=== PATIENT | female | born 1980 | race Caucasian/White ===

== ENCOUNTER 2023-06-06 17:15 | Emergency (ER) | payer SELFPAY ==
[~2023-06-06] VITALS: Ht 152.4 cm; Wt 46.3 kg
[2023-06-06] MEDS ORDERED: MORPHINE SULFATE 4 MG/1 ML DISP.SYRIN IV ONE (17:45)
[2023-06-06 17:57] LABS: HEMATOCRIT 37.8 % (31.2-41.9); MEAN CORPUSCULAR HEMOGLOBIN 31.1 uug (24.7-32.8); PLATELET COUNT (AUTO) 333 K/uL (179-408)
--- NOTE | 2023-06-06 17:58 | NUR ---
1) Received patient AOx4, in moderate distress on arrival. 2) C/o of back, back of head, butt area pain.
[2023-06-06] MEDS ORDERED: SWABABLE VALVE TRANSFER SET EA MC ONE (18:03)
[2023-06-06] MEDS ORDERED: IOHEXOL 300MG/ML 100 ML INFUS..BTL ONE (18:03)
[2023-06-06] MEDS ORDERED: IV NORMAL SALINE 250 ML IV ONE (18:03)
[2023-06-06] MEDS ORDERED: MORPHINE SULFATE 4 MG/1 ML DISP.SYRIN ONE (18:09)
[2023-06-06 18:11] LABS: BILIRUBIN,TOTAL 0.6 mg/dL (0.2-1.0); POTASSIUM 3.9 mmol/L (3.5-5.1); TOTAL PROTEIN, SERUM 6.3 g/dL (6.4-8.2)
[2023-06-06] MEDS ORDERED: ONDANSETRON HCL 4 MG TABLET PO ONE (19:15)
[2023-06-06] MEDS ORDERED: HYDROMORPHONE 1 MG/1 ML DISP.SYRIN IM ONE (19:15)
--- NOTE | 2023-06-06 19:15 | NUR ---
REPORT RECIEVED FROM BOBBY PEREIRA.
--- NOTE | 2023-06-06 19:15 | NUR ---
IV ACCESS: 1) Tried x2 time without success - veins collapse easily. 2) Managed to give Morphine with second attempt. 3) MD informed - no iv access required.
--- NOTE | 2023-06-06 19:20 | NUR ---
Endorsed care to night nurse accordingly
--- NOTE | 2023-06-06 19:30 | NUR ---
PT UP OOB AMB TO BR WITH SOME PAIN. URINE COLLECTED /SENT.
[2023-06-06] MEDS ORDERED: HYDROMORPHONE 1 MG/1 ML DISP.SYRIN ONE (19:39)
[2023-06-06] MEDS ORDERED: ONDANSETRON HCL 4 MG TABLET ONE (19:49)
--- NOTE | 2023-06-06 20:00 | NUR ---
PT TO CT VIA [facility].
[2023-06-06 20:01] LABS: *URINE HCG, QUAL NEGATIVE (NEGATIVE)
[2023-06-06] MEDS ORDERED: HYDR-3980 PO (20:24)
[2023-06-06] MEDS ORDERED: diphenhydrAMINE 25 MG CAP PO ONE ×3 (20:53→21:15)
--- NOTE | 2023-06-06 21:15 | NUR ---
PT A,O X 3 WITH PAIN 4 IN HEAD AND RT SHOULDER, STABLE WITH NAD OBSERVED. Patient discharged to home in stable condition. Written and verbal after care instructions given. Patient verbalizes understanding of instructions. Stressed follow up or return to ER for worsening s/s. PT AMB OUT WITH STEADY GAIT WITH S. O.
[2023-06-06 21:17] VITALS: BP 113/63; TEMP 98; O2SAT 97
== END 2023-06-06 21:15 | disposition home or self-care (01) ==
LOC: ER 17:15
DX: S06.0X0A Concussion without loss of consciousness, initial encounter (principal); S70.01XA Contusion of right hip, initial encounter; S40.011A Contusion of right shoulder, initial encounter; J45.909 Unspecified asthma, uncomplicated; Z79.899 Other long term (current) drug therapy; V03.99XA Pedestrian with other conveyance injured in collision with car, pick-up truck or van, unspecified whether traffic or nontraffic accident, initial encounter; Y93.89 Activity, other specified; Y92.410 Unspecified street and highway as the place of occurrence of the external cause; Y99.8 Other external cause status
CPT/HCPCS: 99285; 70450; 96374; 71045; 80053; 84703; 85025; 85610; 86850; 86900; 86901; 36415; 73030; 71250; 72125; 74176; 96372; Q0163; Q9967; J1170; J2270; A4663; Q0162